=== PATIENT | female | born 1975 | race African-American/Black ===

== ENCOUNTER 2017-01-28 20:17 | Emergency (ER) | payer SELFPAY ==
[~2017-01-28 20:17] MED LIST: AMOX500T PO; CEPH500C3 PO; IBUP600T26 PO; IBUP800T23 PO; NOVONP2 SQ; NOVORP2 SQ
[2017-01-28 20:21] VITALS: BP 219/111; PULSE 107; RESP 18; TEMP 102.4; O2SAT 99
[2017-01-28 21:55] VITALS: BP 179/98; PULSE 100
[2017-01-28] MEDS ORDERED: NOVONP2 SQ ×2 (22:50→22:51)
[2017-01-28] MEDS ORDERED: LISI-515 PO (22:50)
[2017-01-28] MEDS ORDERED: INSU100V2 SQ (22:52)
[2017-01-28 23:42] VITALS: O2SAT 98
[2017-01-28 23:47] LABS: AUTOMATED NEUTROPHIL # 15.7 TH/MM3 (1.8-7.7); BASOPHIL % 0.2 % (0.0-2.0); EOSINOPHIL % 0.1 % (0.0-4.0); HEMATOCRIT 36.3 % (35.0-46.0); HEMO FLAGS DIFF FINAL; LYMPH % 5.9 % (9.0-44.0); MEAN CELL VOLUME 83.3 FL (80.0-100.0); MEAN CORPUSCULAR HEMOGLOBIN 27.2 PG (27.0-34.0); MEAN CORPUSCULAR HGB CONC 32.6 % (32.0-36.0); MONO % 6.1 % (0.0-8.0); NEUT % 87.7 % (16.0-70.0); PLATELET COUNT 170 TH/MM3 (150-450); RED BLOOD COUNT 4.36 MIL/MM3 (4.00-5.30); RED CELL DISTRIBUTION WIDTH 16.1 % (11.6-17.2); WHITE BLOOD COUNT 17.8 TH/MM3 (4.0-11.0)
[2017-01-28 23:59] LABS: ANION GAP 9 MEQ/L (5-15); AST (GOT) 7 U/L (15-37); BICARBONATE 21.1 MEQ/L (21.0-32.0); BLOOD UREA NITROGEN 12 MG/DL (7-18); CHLORIDE 104 MEQ/L (98-107); GLOMERULAR FILTRATION RATE 68 ML/MIN (>89); POTASSIUM 3.6 MEQ/L (3.5-5.1); SODIUM (NA) 134 MEQ/L (136-145)
[2017-01-29] LABS: ALT (GPT) 16 U/L (10-53)
[2017-01-29 00:03] LABS: ALKALINE PHOSPHATASE 81 U/L (45-117); TOTAL BILIRUBIN ADULT 0.5 MG/DL (0.2-1.0)
--- NOTE | 2017-01-29 00:18 | RADRPT ---
EXAM DATE/TIME: 01/28/2017 23:34 [facility] COMPARISON: No previous studies available for comparison. INDICATIONS : Short of breath. MEDICAL HISTORY : None. SURGICAL HISTORY : None. ENCOUNTER: Initial ACUITY: 1 day PAIN SCORE: 0/10 LOCATION: Bilateral chest FINDINGS: The cardiac silhouette is enlarged in transverse diameter. The lungs are free of acute parenchymal op acity. No effusions are identified. Osseous structures are intact. CONCLUSION: Cardiomegaly. No acute cardiopulmonary disease. Justin West MD on January 29, 2017 at 0:17 Board Certified Radiologist. This report was verified electronically.
--- NOTE | 2017-01-29 00:25 | RADRPT ---
EXAM DATE/TIME: 01/28/2017 23:45 [facility] COMPARISON: No previous studies available for comparison. INDICATIONS : Cephalgia. RADIATION DOSE: 31.54 CTDIvol (mGy) MEDICAL HISTORY : Diabetes mellitus type 2. Asthma. SURGICAL HISTORY : Tubal ligation. ENCOUNTER: Initial ACUITY: 1 day PAIN SCALE: 10/10 LOCATION: cranial TECHNIQUE: Multiple contiguous axial images were obtained of the head. Using automated exposure control and adj ustment of the mA and/or kV according to patient size, radiation dose was kept as low as reasonably a chievable to obtain optimal diagnostic quality images. DICOM format image data is available electro nically for review and comparison. FINDINGS: CEREBRUM: The ventricles are normal for age. No evidence of midline shift, mass lesion, hemorrhage or acute in farction. No extra-axial fluid collections are seen. POSTERIOR FOSSA: The cerebellum and brainstem are intact. The 4th ventricle is midline. The cerebellopontine angle i s unremarkable. EXTRACRANIAL: The visualized portion of the orbits is intact. SKULL: The calvaria is intact. No evidence of skull fracture. CONCLUSION: 1. No evidence of acute intracranial pathology. No masses are identified. Justin West MD on January 29, 2017 at 0:23 Board Certified Radiologist. This report was verified electronically.
[2017-01-29 01:12] VITALS: BP 178/78; PULSE 68; RESP 18; O2SAT 99
[2017-01-29 01:28] LABS: BACTERIA, URINE MOD /hpf; BLOOD, URINE NEG (NEG); COMMENT (UR) CULTURE INDICATED; CULTURE IF INDICATED CULTURE INDICATED; GLUCOSE,URINE 150 mg/dL (NEG); KETONE, URINE NEG (NEG); MUCUS URINE FEW /lpf (OCC); NITRITE,URINE POS (NEG); SQUAMOUS EPITHELIAL CELL URINE 1 /hpf (0-5); URINE COLOR LIGHT-YELLOW (YELLW/STRAW)
[2017-01-29] MEDS ORDERED: LISI-515 PO (01:56)
[2017-01-29] MEDS ORDERED: CIPR-9 PO (01:56)
--- NOTE | 2017-01-29 01:58 | PD ---
HPI Chief Complaint: Cold / Flu Symptoms Time Seen by Provider: 23:06 Travel History International Travel<30 days: No Contact w/Intl Traveler<30days: No Traveled to known affect area: No History of Present Illness HPI PATIENT C/O BODY ACHES, URINARY FREQUENCY, URGENCY, DYSURIA FOR PAST 4 DAYS OR SO NOT IMPROVING WITH AZO, NOW NOTED A FEVER (LOW GRADE) WELL. DENIES N/V/ ABD PAIN/CP/LOZOYA. NO ALLEVIATING OR AGGRAVATING FACTORS ALTHOUGH NOT AN INITIAL COMPLAINT, PT C/O HEAD PRESSURE, 4/10, NONRADIATING, NO VISUAL CHANGES AND NOTED TO BE HYPERTENSIVE AT 190 SBP PFSH Past Medical History Asthma: Yes Diabetes: Yes Patient Takes Glucophage: No Diminished Hearing: No Respiratory: Yes (BRONCHITIS) Tetanus Vaccination: Unknown Influenza Vaccination: No ?: Not LMP: 01/13/2017 : 12 Para: 2 Miscarriage: 10 Dilation and Curettage (D&C): Yes Tubal Ligation: Yes Past Surgical History Section: Yes (x2) Social History Alcohol Use: No Tobacco Use: Yes (1/2 PPD) Substance Use: Yes (weed ) Allergies-Medications (Allergen,Severity, Reaction): Coded Allergies: iodine (Unverified Allergy, Intermediate, 01/28/17) potassium iodide (Unverified Allergy, Intermediate, 01/28/17) povidone-iodine (Unverified Allergy, Intermediate, 01/28/17) sodium iodide (Unverified Allergy, Intermediate, 01/28/17) sodium iodide (Unverified Allergy, Intermediate, 01/28/17) Reported Meds & Prescriptions Reported Meds & Active Scripts Active Cipro (Ciprofloxacin HCl) 500 Mg Tab 500 Mg PO BID 7 Days Lisinopril 20 Mg Tab 20 Mg PO DAILY Reported Humulin R Inj (Insulin Human Regular) 1,000 Unit/10 Ml Vial 1-9 Units SQ ACHS Max dose at bedtime( )units; sugars < 70(0)units; sugars 150-199,(1)unit; sugars 200-249(3)units; sugars 250-299,(5)units; sugars 300-349(7)units; sugars more than 349(9)units. Novolin N Inj (Insulin Human NPH) 1,000 Unit/10 Ml Vial 10 Units SQ Review of Systems Except as stated in HPI: all other systems reviewed are Neg General / Constitutional: Positive: Fever Genitourinary: Positive: Urgency, Frequency, Dysuria Physical Exam Narrative GENERAL: SKIN: Warm and dry. HEAD: Atraumatic. Normocephalic. EYES: Pupils equal and round. No scleral icterus. No injection or drainage. ENT: No nasal bleeding or discharge. Mucous membranes pink and moist. NECK: Trachea midline. No JVD. CARDIOVASCULAR: Regular rate and rhythm. RESPIRATORY: No accessory muscle use. Clear to auscultation. Breath sounds equal bilaterally. GASTROINTESTINAL: Abdomen soft, non-tender, nondistended. MUSCULOSKELETAL: Extremities without clubbing, cyanosis, or edema. No obvious deformities. NEUROLOGICAL: Awake and alert. No obvious cranial nerve deficits. Motor grossly within normal limits. Five out of 5 muscle strength in the arms and legs. Normal speech. PSYCHIATRIC: Appropriate mood and affect; insight and judgment normal. Data Data Last Documented VS Orders Orders Complete Blood Count With Diff (01/28/17 23:26) Comprehensive Metabolic Panel (01/28/17 23:26) Troponin I (01/28/17 23:26) Blood Culture (01/28/17 23:26) Lipase (01/28/17 23:26) Urinalysis - C+S If Indicated (01/28/17 23:26) Influenzae A/B Antigen (01/28/17 23:26) Chest, Single Ap (01/28/17 23:26) Ct Brain W/O Iv Contrast(Rout) (01/28/17 23:26) Iv Access Insert/Monitor (01/28/17 23:26) Ecg Monitoring (01/28/17 23:26) Oximetry (01/28/17 23:26) Urine Culture (01/29/17 01:10) Ceftriaxone Inj (Rocephin Inj) (01/29/17 02:00) Ed Discharge Order (01/29/17 02:19) Labs Laboratory Tests Test 01/28/17 23:30 01/29/17 01:10 White Blood Count 17.8 TH/MM3 Red Blood Count 4.36 MIL/MM3 Hemoglobin 11.8 GM/DL Hematocrit 36.3 % Mean Corpuscular Volume 83.3 FL Mean Corpuscular Hemoglobin 27.2 PG Mean Corpuscular Hemoglobin Concent 32.6 % Red Cell Distribution Width 16.1 % Platelet Count 170 TH/MM3 Mean Platelet Volume 10.7 FL Neutrophils (%) (Auto) 87.7 % Lymphocytes (%) (Auto) 5.9 % Monocytes (%) (Auto) 6.1 % Eosinophils (%) (Auto) 0.1 % Basophils (%) (Auto) 0.2 % Neutrophils # (Auto) 15.7 TH/MM3 Lymphocytes # (Auto) 1.0 TH/MM3 Monocytes # (Auto) 1.1 TH/MM3 Eosinophils # (Auto) 0.0 TH/MM3 Basophils # (Auto) 0.0 TH/MM3 CBC Comment DIFF FINAL Differential Comment Blood Urea Nitrogen 12 MG/DL Creatinine 1.08 MG/DL Random Glucose 198 MG/DL Total Protein 7.8 GM/DL Albumin 3.3 GM/DL Calcium Level 8.6 MG/DL Alkaline Phosphatase 81 U/L Aspartate Amino Transf (AST/SGOT) 7 U/L Alanine Aminotransferase (ALT/SGPT) 16 U/L Total Bilirubin 0.5 MG/DL Sodium Level 134 MEQ/L Potassium Level 3.6 MEQ/L Chloride Level 104 MEQ/L Carbon Dioxide Level 21.1 MEQ/L Anion Gap 9 MEQ/L Estimat Glomerular Filtration Rate 68 ML/MIN Troponin I LESS THAN 0.02 NG/ML Lipase 80 U/L Urine Color LIGHT-YELLOW Urine Turbidity CLEAR Urine pH 5.0 Urine Specific [place] 1.009 Urine Protein NEG mg/dL Urine Glucose (UA) 150 mg/dL Urine Ketones NEG mg/dL Urine Occult Blood NEG Urine Nitrite POS Urine Bilirubin NEG Urine Urobilinogen LESS THAN 2.0 MG/DL Urine Leukocyte Esterase TRACE Urine RBC 1 /hpf Urine WBC 3 /hpf Urine Squamous Epithelial Cells 1 /hpf Urine Bacteria MOD /hpf Urine Mucus FEW /lpf Microscopic Urinalysis Comment CULTURE INDICATED MDM Medical Decision Making Medical Screen Exam Complete: Yes Emergency Medical Condition: Yes Medical Record Reviewed: Yes Differential Diagnosis FLU V UTI V PNA V SINUSITIS Narrative Course PATIENT THOROUGHLY EVALUATED FOUND TO HAVE URINE SOURCE OF LEUKOCYTOSIS AND LOW GRADE FEVER, NEG FLU, PT TOLERATED PO, WILL D/C ON PO ABX AND REFILL HER HTN MED WHICH SHE HAS BEEN OUT FOR AT LEAST A WEEK Diagnosis Primary Impression: ASCENDING CYSTITIS Patient Instructions: General Instructions, Urinary Tract Infection in Women ( ED) Scripts Ciprofloxacin (Cipro) 500 Mg Tab 500 MG PO BID for Infection for 7 Days, #14 TAB 0 Refills Prov: Dc Anne MD 01/29/17 Lisinopril (Lisinopril) 20 Mg Tab 20 MG PO DAILY, #30 TAB 0 Refills Prov: Dc Anne MD 01/29/17 Disposition: 01 DISCHARGE HOME Condition: Stable Dc Anne MD Jan 29, 2017 01:58
[2017-01-29] MEDS ORDERED: cefTRIAXone INJ 1,000 MG in SODIUM CHLORIDE 0.9% INJ 100 ML IV ONE (02:00)
== END 2017-01-29 02:46 | disposition home or self-care (01) ==
LOC: NEPE 20:17
DX: N30.80 Other cystitis without hematuria (principal); B96.20 Unspecified Escherichia coli [E. coli] as the cause of diseases classified elsewhere; B96.89 Other specified bacterial agents as the cause of diseases classified elsewhere; R51 Headache; M79.1 Myalgia; I10 Essential (primary) hypertension; E11.9 Type 2 diabetes mellitus without complications; F17.200 Nicotine dependence, unspecified, uncomplicated; Z79.4 Long term (current) use of insulin; Z87.09 Personal history of other diseases of the respiratory system
CPT/HCPCS: 70450; 71010; 80053; 81001; 83690; 84484; 85025; 87040; 87077; 87086; 87186; 87804; 96365; 99285; J0696